=== PATIENT | female | born 1945 | race Two or more races ===

== ENCOUNTER 2018-05-04 07:19 | Outpatient (CLI) | payer OTHER ==
[~2018-05-04] VITALS: Ht 152.4 cm; Wt 57.2 kg
[~2018-05-04 07:19] MED LIST: CLARITIN10 MG PO; ZANTAC300 MG PO
[2018-05-04] MEDS ORDERED: ZANTAC300 MG PO (08:48)
[2018-05-04] MEDS ORDERED: CLARITIN10 MG PO (08:48)
== END 2018-05-04 07:25 | disposition home or self-care (01) ==
LOC: OFIC 805 07:19
DX: J31.0 Chronic rhinitis (principal); R49.0 Dysphonia; E04.2 Nontoxic multinodular goiter; R22.1 Localized swelling, mass and lump, neck; J37.0 Chronic laryngitis; H61.22 Impacted cerumen, left ear; R05 Cough

== ENCOUNTER 2019-02-08 09:44 | Outpatient (CLI) | payer OTHER ==
[~2019-02-08] VITALS: Ht 152.4 cm; Wt 58.1 kg
== END 2019-02-08 10:00 | disposition home or self-care (01) ==
LOC: OFIC 805 09:44
DX: J31.0 Chronic rhinitis (principal); R49.0 Dysphonia; E04.2 Nontoxic multinodular goiter; H61.22 Impacted cerumen, left ear; H90.3 Sensorineural hearing loss, bilateral

== ENCOUNTER 2024-12-14 23:10 | Inpatient (IN) | payer OTHER ==
[~2024-12-14] VITALS: Ht 160 cm; Wt 45.4 kg
[2024-12-14] MEDS ORDERED: CLOPIDOGREL BIS75 MG PO (23:34)
[2024-12-14] MEDS ORDERED: METFORMIN HCL500 M3 PO (23:34)
[2024-12-14] MEDS ORDERED: SEROQUEL50 MG PO (23:34)
[2024-12-14] MEDS ORDERED: LOSARTAN POTASS25 MG PO (23:34)
[2024-12-14] MEDS ORDERED: KEPPRA500 MG PO (23:34)
[2024-12-14] MEDS ORDERED: RESTORIL30 MG PO (23:35)
[2024-12-14] MEDS ORDERED: HYDROCORTISONE SODIUM SUCC/PF 250 MG VIAL IV ONE (23:45)
[2024-12-14] MEDS ORDERED: FAMOtidine 10 MG/ML (4ML VIAL) IV ONE (23:45)
[2024-12-14] MEDS ORDERED: 0.9 % SODIUM CHLORIDE 1,000 ML IV ONE (23:45)
[2024-12-14] MEDS ORDERED: LevETIRAcetam 500 MG/5 ML VIAL IV SCH (23:49)
[2024-12-15] MEDS ORDERED: PIPERACILLIN/TAZOBACTAM SODIUM 3.375 GM VIAL IV SCH
[2024-12-15] MEDS ORDERED: LevETIRAcetam 500 MG/5 ML VIAL IV ONE ×2 (00:10→10:18)
[2024-12-15] MEDS ORDERED: LEVALBUTEROL HCL 1.25 MG/3 ML SOLUTION IH ONE ×3 (00:10→13:06)
[2024-12-15] MEDS ORDERED: FAMOTIDINE/PF 20 MG/2 ML VIAL ONE (00:11)
[2024-12-15] MEDS ORDERED: PIPERACILLIN/TAZOBACTAM SODIUM 3.375 GM VIAL IV ONE ×3 (00:11→11:43)
[2024-12-15] MEDS ORDERED: IPRATROPIUM BROMIDE 0.5 MG/2.5 ML AMPUL.NEB IH ONE ×3 (00:11→13:06)
[2024-12-15] MEDS ORDERED: LABETALOL HCL 100 MG/20 ML ML IV PUSH STA (00:27)
[2024-12-15 00:36] LABS: BASO % 0.3 % (0.1-1.2); EOS # 0.06 (0.04-0.54); EOS % 0.5 % (0.7-7.0); HEMATOCRIT 35.1 % (34.1-44.9); HEMOGLOBIN 11.6 g/dL (11.2-15.7); LYMPH % 7.9 % (19.3-53.1); MEAN CORPUSCULAR HEMOGLOBIN 26.5 pg (25.6-32.2); MONO # 0.67 (0.24-0.82); MONO % 5.9 % (4.7-12.5); NEUT # 9.75 (1.56-6.13); NEUT % 85.1 % (34.0-71.1); PLATELET COUNT 299 K/uL (163-369); RED BLOOD COUNT 4.37 M/uL (3.93-5.22); RED CELL DISTRIBUTION WIDTH 14.3 % (11.6-14.4)
[2024-12-15] MEDS ORDERED: HYDROCORTISONE SODIUM SUCC/PF 250 MG VIAL ONE (00:40)
[2024-12-15] MEDS ORDERED: LABETALOL HCL 100 MG/20 ML ML ONE (00:40)
[2024-12-15] MEDS ORDERED: LEVALBUTEROL HCL 1.25 MG/3 ML SOLUTION IH SCH (01:00)
[2024-12-15] MEDS ORDERED: IPRATROPIUM BROMIDE 0.5 MG/2.5 ML AMPUL.NEB IH SCH ×2 (01:00→13:00)
[2024-12-15 01:08] LABS: ALBUMIN 3.1 gm/dL (3.4-5.0); BILIRUBIN TOTAL 0.43 mg/dL (0.3-1.2); CALCIUM 8.7 mg/dL (8.5-10.1); CREATININE SERUM 0.76 mg/dL (0.55-1.02); GFR 73.41; GLOBULINA 4.8 G/DL (2.4-3.5); POTASSIUM 3.75 mEq/L (3.5-5.1); TOTAL PROTEIN 7.9 gm/dL (6.4-8.2)
[2024-12-15 01:47] LABS: ABG PH 7.336 (7.35-7.45); ABG PO2 160.3 mmHg (80-100); ABG pCO2 55.4 mmHg (35-45); BASE EXCESS 1.8 mmol/l; BICARBONATE 28.9 mmol/l (23-25); SaO2 99.3 %; Tco2 30.6 mmol/l
[2024-12-15 01:48] LABS: allen test SATISFACTORY; mode NON REBREATHING MASK; o2 50 %; puncture site RADIAL RIGHT
[2024-12-15 01:49] LABS: INR 1.08; PARTIAL THROMBOPLASTIN TIME 35.3 SECONDS (22.0-34.0); PROTHROMBIN TIME 11.7 SECONDS (9.0-11.5)
[2024-12-15 02:27] LABS: URINE APPEARANCE Cloudy; URINE BILIRRUBIN Negative (NEGATIVE); URINE BLOOD Negative; URINE COLOR Yellow; URINE GLUCOSE Negative (NEGATIVE); URINE KETONE Trace (NEGATIVE); URINE LEUKOCYTE Negative; URINE NITRATE Negative; URINE PROTEIN 30 (NEGATIVE); URINE UROBILINOGEN 0.2 E.U./dl
[2024-12-15 02:31] LABS: URINE BACTERIA 13.4 uL (0.0-1933); URINE EPITHELIAL CELLS 4.5 uL (0.0-38.8); URINE RBC 59.2 uL (0.0-20.8); URINE WBC 6.8 uL (0.0-23.2)
[2024-12-15 02:50] LABS: URINE CAST 0.58 uL (0.0-1.40)
[2024-12-15 06:29] LABS: ABG PH 7.375 (7.35-7.45); ABG PO2 153.8 mmHg (80-100); ABG pCO2 48.2 mmHg (35-45); BASE EXCESS 1.6 mmol/l; BICARBONATE 27.5 mmol/l (23-25); SaO2 99.3 %
[2024-12-15 06:30] LABS: o2 50 %
[2024-12-15 06:31] LABS: allen test SATISFACTORY; puncture site RADIAL LEFT
[2024-12-15 06:32] LABS: mode BPAP
[2024-12-15] MEDS ORDERED: NOREPINEPHRINE BITARTRATE 1 MG/ML AMPUL IV ONE (06:37)
[2024-12-15] MEDS ORDERED: 0.9 % SODIUM CHLORIDE 500 ML IV ONE (09:15)
[2024-12-15] MEDS ORDERED: 0.9 % SODIUM CHLORIDE 1,000 ML IV SCH (12:30)
[2024-12-15] MEDS ORDERED: LACTOBACILLUS ACIDOPHILUS 1 CAP CAP PO SCH (12:32)
[2024-12-15] MEDS ORDERED: PIPERACILLIN/TAZOBACTAM SODIUM 3.375 GM in DEXTROSE 5 % IN WATER 100 ML IV SCH (12:32)
[2024-12-15] MEDS ORDERED: CLOPIDOGREL BISULFATE 75 MG TABLET PO SCH (12:33)
[2024-12-15] MEDS ORDERED: FAMOTIDINE/PF 20 MG/2 ML VIAL IV SCH (12:37)
[2024-12-15] MEDS ORDERED: DEXTROSE 50 % IN WATER 0.5 G/ML DISP.SYRIN IV PRN (12:45)
[2024-12-15] MEDS ORDERED: ONDANSETRON HCL 4 MG in DEXTROSE 5 % IN WATER 50 ML IV PRN (12:45)
[2024-12-15] MEDS ORDERED: QUETIAPINE FUMARATE 25 MG TABLET PO PRN (12:45)
[2024-12-15] MEDS ORDERED: INSULIN LISPRO 1,000 UNIT/10 ML UNITS SUBCUTANEO PRN (12:45)
[2024-12-15] MEDS ORDERED: ACETAMINOPHEN 500 MG GEL..CAP PO PRN (12:45)
[2024-12-15] MEDS ORDERED: hydrALAZINE HCL 20 MG VIAL IV PRN (12:45)
[2024-12-15] MEDS ORDERED: LEVALBUTEROL HCL 0.63 MG/3 ML SOLUTION IH SCH (13:00)
[2024-12-15 13:19] LABS: ABG PH 7.406 (7.35-7.45); ABG PO2 130.4 mmHg (80-100); ABG pCO2 42.6 mmHg (35-45); BASE EXCESS 1.2 mmol/l; BICARBONATE 26.2 mmol/l (23-25); Tco2 27.5 mmol/l
[2024-12-15 14:02] VITALS: BP 143/80
[2024-12-15 14:40] LABS: INFLUENZA A AG NEGATIVE (NEGATIVE)
[2024-12-15 14:45] LABS: COVID-19 AG NEGATIVE (NEGATIVE)
[2024-12-15 14:48] LABS: INFLUENZA B AG POSITIVE (NEGATIVE)
[2024-12-15 14:53] VITALS: O2SAT 100
[2024-12-15 15:08] LABS: allen test SATISFACTORY; mode BPAP; o2 35 %; puncture site RADIAL RIGHT
[2024-12-15 16:00] VITALS: O2SAT 100
[2024-12-15] MEDS ORDERED: LINEZOLID IN DEXTROSE 5% 300 ML IV SCH (17:00)
[2024-12-15] MEDS ORDERED: ATORVASTATIN CALCIUM 40 MG TABLET PO SCH (17:00)
[2024-12-15 18:19] VITALS: BP 176/106
[2024-12-15] MEDS ORDERED: TEMAZEPAM 15 MG CAPSULE PO SCH (21:00)
[2024-12-15 22:12] VITALS: O2SAT 100
[2024-12-16] VITALS (9 sets, daily range): BP systolic 145–160; BP diastolic 80–100; O2SAT 97–100
[2024-12-16 07:42] LABS: BASO % 0.2 % (0.1-1.2); EOS # 0.07 (0.04-0.54); EOS % 0.5 % (0.7-7.0); HEMATOCRIT 33.1 % (34.1-44.9); HEMOGLOBIN 10.8 g/dL (11.2-15.7); LYMPH % 8.9 % (19.3-53.1); MEAN CORPUSCULAR HEMOGLOBIN 26.2 pg (25.6-32.2); MONO # 1.18 (0.24-0.82); MONO % 8.1 % (4.7-12.5); NEUT # 11.99 (1.56-6.13); NEUT % 81.9 % (34.0-71.1); PLATELET COUNT 325 K/uL (163-369); RED BLOOD COUNT 4.13 M/uL (3.93-5.22); RED CELL DISTRIBUTION WIDTH 14.5 % (11.6-14.4)
[2024-12-16 07:50] LABS: ERYTHROCYTE SEDIMENTATION RATE 55 mm/hr (0-30)
[2024-12-16 07:53] LABS: INR 1.05; PARTIAL THROMBOPLASTIN TIME 33.9 SECONDS (22.0-34.0); PROTHROMBIN TIME 11.4 SECONDS (9.0-11.5)
[2024-12-16 08:02] LABS: TSH 1.28 uIU/mL (0.358-3.74)
[2024-12-16 08:13] LABS: ALBUMIN 2.8 gm/dL (3.4-5.0); BILIRUBIN TOTAL 0.32 mg/dL (0.3-1.2); CALCIUM 8.7 mg/dL (8.5-10.1); CHOL HDL RATIO 2.9 (0-5.0); CREATININE SERUM 0.79 mg/dL (0.55-1.02); GFR 70.2; GLOBULINA 4.1 G/DL (2.4-3.5); MAGNESIUM 2.2 mg/dL (1.8-2.4); PHOSPHOROUS 2.8 mg/dL (2.5-4.9); POTASSIUM 4.02 mEq/L (3.5-5.1); TOTAL PROTEIN 6.9 gm/dL (6.4-8.2)
[2024-12-16 08:40] LABS: C-REACTIVE PROTEIN 1.23 MG/DL (0.00-0.29)
[2024-12-16] MEDS ORDERED: LevETIRAcetam 500 MG/5 ML VIAL IV SCH (09:00)
[2024-12-16 09:07] LABS: PH,URINE 6.5 (5.0-8.0); URINE APPEARANCE Turbid; URINE BILIRRUBIN Negative (NEGATIVE); URINE BLOOD Large; URINE COLOR Orange; URINE GLUCOSE Negative (NEGATIVE); URINE KETONE Negative (NEGATIVE); URINE LEUKOCYTE Small; URINE NITRATE Negative; URINE UROBILINOGEN 0.2 E.U./dl
[2024-12-16 09:11] LABS: URINE BACTERIA 669.5 uL (0.0-1933); URINE EPITHELIAL CELLS 24.6 uL (0.0-38.8); URINE WBC 110.3 uL (0.0-23.2)
[2024-12-16 09:43] LABS: URINE CAST 1.17 uL (0.0-1.40); URINE PROTEIN 300 (NEGATIVE); URINE RBC > 10558.9 uL (0.0-20.8)
[2024-12-16] MEDS ORDERED: OSELTAMIVIR PHOSPHATE 75 MG CAPSULE PO NR (11:00)
[2024-12-16] MEDS ORDERED: ENALAPRILAT DIHYDRATE 1.25 MG/ML VIAL IV SCH (12:00)
[2024-12-16] MEDS ORDERED: OSELTAMIVIR PHOSPHATE 75 MG CAPSULE PO SCH (17:00)
[2024-12-17] VITALS (7 sets, daily range): BP systolic 110–149; BP diastolic 64–86; O2SAT 94–99
[2024-12-17] MEDS ORDERED: EMOLLIENT COMBINATION NO.92 2.5 OZ BOTTLE TOP SCH (09:00)
[2024-12-17 11:59] LABS: URINE PROT QUANT 24HR 233.7 MG/DL
[2024-12-17 12:05] LABS: URINE PROT QUANT 24 HR 1635.9 MG/24HR (42-225)
[2024-12-18] VITALS (9 sets, daily range): BP systolic 109–142; BP diastolic 62–85; O2SAT 97–99
[2024-12-18 06:14] LABS: BASO % 0.5 % (0.1-1.2); EOS # 0.41 (0.04-0.54); EOS % 4.9 % (0.7-7.0); HEMATOCRIT 31.1 % (34.1-44.9); HEMOGLOBIN 10.3 g/dL (11.2-15.7); LYMPH # 1.41 (1.18-3.74); LYMPH % 16.9 % (19.3-53.1); MEAN CORPUSCULAR HEMOGLOBIN 26.8 pg (25.6-32.2); MONO # 0.99 (0.24-0.82); MONO % 11.9 % (4.7-12.5); NEUT # 5.49 (1.56-6.13); NEUT % 65.7 % (34.0-71.1); PLATELET COUNT 283 K/uL (163-369); RED BLOOD COUNT 3.84 M/uL (3.93-5.22); RED CELL DISTRIBUTION WIDTH 14.6 % (11.6-14.4)
[2024-12-18 06:52] LABS: ALBUMIN 2.7 gm/dL (3.4-5.0); BILIRUBIN TOTAL 0.44 mg/dL (0.3-1.2); CALCIUM 8.4 mg/dL (8.5-10.1); CREATININE SERUM 0.66 mg/dL (0.55-1.02); GFR 86.39; GLOBULINA 3.7 G/DL (2.4-3.5); MAGNESIUM 2.2 mg/dL (1.8-2.4); PHOSPHOROUS 2.4 mg/dL (2.5-4.9); POTASSIUM 3.31 mEq/L (3.5-5.1); TOTAL PROTEIN 6.4 gm/dL (6.4-8.2)
[2024-12-18] MEDS ORDERED: POTASSIUM CHLORIDE 20MEQ/100ML H2O PB IV NR (12:35)
[2024-12-18] MEDS ORDERED: POTASSIUM PHOS,M-BASIC-D-BASIC 18 MM in 0.9 % SODIUM CHLORIDE 250 ML IV NR (13:30)
[2024-12-18] MEDS ORDERED: PIPERACILLIN/TAZOBACTAM SODIUM 3.375 GM VIAL IV ONE (23:23)
[2024-12-19 00:28] VITALS: O2SAT 99
[2024-12-19 01:06] VITALS: BP 142/80; O2SAT 97
[2024-12-19 02:59] VITALS: O2SAT 99
[2024-12-19 08:05] VITALS: BP 150/87; O2SAT 98
[2024-12-19] MEDS ORDERED: PANTOPRAZOLE SODIUM 40 MG/VIAL VIAL IV PUSH SCH (12:00)
[2024-12-19 17:26] VITALS: BP 131/75; O2SAT 96
[2024-12-20] VITALS (9 sets, daily range): BP systolic 132–163; BP diastolic 73–89; O2SAT 90–98
[2024-12-20 08:16] LABS: BASO % 0.5 % (0.1-1.2); EOS # 0.47 (0.04-0.54); EOS % 4.5 % (0.7-7.0); HEMOGLOBIN 10.2 g/dL (11.2-15.7); LYMPH # 1.66 (1.18-3.74); LYMPH % 15.9 % (19.3-53.1); MEAN CORPUSCULAR HEMOGLOBIN 26.8 pg (25.6-32.2); MONO # 1.08 (0.24-0.82); MONO % 10.3 % (4.7-12.5); NEUT # 7.18 (1.56-6.13); NEUT % 68.6 % (34.0-71.1); PLATELET COUNT 316 K/uL (163-369); RED CELL DISTRIBUTION WIDTH 14.3 % (11.6-14.4)
[2024-12-20 08:31] LABS: ERYTHROCYTE SEDIMENTATION RATE 47 mm/hr (0-30)
[2024-12-20 08:46] LABS: ALBUMIN 2.7 gm/dL (3.4-5.0); BILIRUBIN TOTAL 0.53 mg/dL (0.3-1.2); CALCIUM 8.4 mg/dL (8.5-10.1); CREATININE SERUM 0.73 mg/dL (0.55-1.02); GFR 76.9; GLOBULINA 3.8 G/DL (2.4-3.5); POTASSIUM 3.71 mEq/L (3.5-5.1); TOTAL PROTEIN 6.5 gm/dL (6.4-8.2)
[2024-12-20 08:48] LABS: C-REACTIVE PROTEIN 0.82 MG/DL (0.00-0.29)
[2024-12-20 10:23] LABS: ABG PH 7.408 (7.35-7.45); ABG PO2 62.2 mmHg (80-100); ABG pCO2 53.1 mmHg (35-45); BASE EXCESS 6.4 mmol/l; BICARBONATE 32.7 mmol/l (23-25); SaO2 92.1 %; Tco2 34.3 mmol/l
[2024-12-20 11:56] LABS: allen test SATISFACTORY; o2 21 %; puncture site RADIAL RIGHT
[2024-12-20 11:57] LABS: mode ROOM AIR
[2024-12-21] VITALS (9 sets, daily range): BP systolic 150–160; BP diastolic 74–80; O2SAT 90–100
[2024-12-21] MEDS ORDERED: LevETIRAcetam 100 MG/1 ML LIQUIDO PO SCH (09:00)
[2024-12-21] MEDS ORDERED: DIPHENHYDRAMINE HCL 50 MG/ML VIAL 1ML IV STA (10:58)
[2024-12-21] MEDS ORDERED: MIDAZOLAM HCL 2 MG/2 ML VIAL IV STA (10:59)
[2024-12-21] MEDS ORDERED: FentaNYL CITRATE/PF 50MCG/ML 2ML VIAL IJ STA (10:59)
[2024-12-22] VITALS (8 sets, daily range): BP systolic 140–166; BP diastolic 85–92; O2SAT 90–99
[2024-12-23 01:18] VITALS: O2SAT 90
[2024-12-23 02:22] VITALS: BP 151/77; O2SAT 99
[2024-12-23 06:16] VITALS: O2SAT 90
[2024-12-23 09:07] VITALS: O2SAT 90
[2024-12-23 09:12] VITALS: BP 124/67; O2SAT 98
[2024-12-23 13:00] VITALS: O2SAT 98
== END 2024-12-23 17:03 | disposition home or self-care (01) | DRG 189 ==
LOC: ER 23:10 → MEDJ 12-15 13:21
PROVIDERS: Emergency Medicine; General Practice; Internal Medicine Critical Care Medicine; Internal Medicine Geriatric Medicine; ADMIT Internal Medicine; ATTEND Internal Medicine
PROC: 5A09557 Assistance with Respiratory Ventilation, Greater than 96 Consecutive Hours, Continuous Positive Airway Pressure (ICD-10-PCS; 2024-12-14)
PROC: BW24ZZZ Computerized Tomography (CT Scan) of Chest and Abdomen (ICD-10-PCS; 2024-12-14)
PROC: BW28ZZZ Computerized Tomography (CT Scan) of Head (ICD-10-PCS; 2024-12-14)
PROC: B24BYZZ Ultrasonography of Heart with Aorta using Other Contrast (ICD-10-PCS; 2024-12-15)
PROC: 3E0F7GC Introduction of Other Therapeutic Substance into Respiratory Tract, Via Natural or Artificial Opening (ICD-10-PCS; 2024-12-15)
PROC: 4A12X4Z Monitoring of Cardiac Electrical Activity, External Approach (ICD-10-PCS; 2024-12-15)
PROC: 0DH63UZ Insertion of Feeding Device into Stomach, Percutaneous Approach (ICD-10-PCS; principal; 2024-12-21)
DX: J96.00 Acute respiratory failure, unspecified whether with hypoxia or hypercapnia (principal); J69.0 Pneumonitis due to inhalation of food and vomit; I63.9 Cerebral infarction, unspecified; R65.21 Severe sepsis with septic shock; J10.1 Influenza due to other identified influenza virus with other respiratory manifestations; J96.90 Respiratory failure, unspecified, unspecified whether with hypoxia or hypercapnia; G30.9 Alzheimer's disease, unspecified; F02.80 Dementia in other diseases classified elsewhere, unspecified severity, without behavioral disturbance, psychotic disturbance, mood disturbance, and anxiety